=== PATIENT | female | born 1965 | race Caucasian/White ===

== ENCOUNTER → 2016-02-17 | Outpatient (CLI) | payer BC ==
--- NOTE | 2016-02-17 18:55 | Diagnostic Imaging Report ---
PROCEDURE: US Thyroid. TECHNIQUE: Multiple real-time grayscale images were obtained of the thyroid in various projections. INDICATION: Family history of thyroid cancer. FINDINGS: The right thyroid lobe is 6.2 x 2.4 x 2 cm. The right lobe is 5.7 x 2.2 x 2 cm. There is heterogeneous gland seen with slight increased vascularity but no dominant lesion or mass identified. IMPRESSION: Heterogenous enlarged thyroid may relate to thyroiditis or goiter without a discrete thyroid nodule. Dictated by: Dictated on workstation # [id number]
== END ==
LOC: RAD 10:38
PROVIDERS: ATTEND Nurse Practitioner Family
DX: Z80.8 Family history of malignant neoplasm of other organs or systems (principal); E04.9 Nontoxic goiter, unspecified
CPT/HCPCS: 76536

== ENCOUNTER 2020-02-01 13:54 | Outpatient (CLI) | payer OTHER | END 2020-02-01 14:25 | disposition home or self-care (01) | LOC: SLEEP 13:54 | PROVIDERS: ATTEND Surgery | DX: G47.33 Obstructive sleep apnea (adult) (pediatric) (principal) ==

== ENCOUNTER 2020-11-27 14:55 | Emergency (ER) | payer OTHER ==
[~2020-11-27] VITALS: Ht 175 cm; Wt 87.9 kg
[2020-11-27] MEDS ORDERED: LEVO175T2 (15:13)
--- NOTE | 2020-11-27 15:33 | ED Upper Extremity ---
General Chief Complaint: Laceration Stated Complaint: LEFT INDEX FINGER LAC Nursing Triage Note: PT PRESENTS TO ED VIA POV FROM HOME WITH COMPLAINTS OF L POINTER FINGER LAC AFTER GETTING IT CAUGHT IN HER DOG'S OUTDOOR WIRE LEASH. Source: patient Exam Limitations: no limitations (IQRA MAY) History of Present Illness Date Seen by Provider: Nov 27, 2020 Time Seen by Provider: 15:09 Initial Comments This is Codey a 55 yo female that presented to the ED via private vehicle with the chief complaint of distal left index finger laceration. She described getting it caught in a runner cable for her dog as it took off after a squirrel. The 3rd digit is also swollen and mildly tender. This incident occurred 45 minutes ago and Pt stated that she felt light headed and sweaty so had someone give her a ride. She is currently feeling much better. She denies taking and anticoagulant therapy or bleeding disorders. Onset: just prior to arrival Severity: moderate Pain/Injury Location: left 2nd finger Method of Injury: incised Modifying Factors: Improves With Immobilization (IQRA MAY) Allergies and Home Medications Allergies Coded Allergies: No Known Drug Allergies (Unverified , 11/27/20) Patient Home Medication List Levothyroxine Sodium (Synthroid) 175 Mcg Tablet, (Reported) Entered as Reported by: MYKE GUNN on 11/27/20 1513 Last Action: New Order Review of Systems Constitutional: no symptoms reported EENTM: no symptoms reported Respiratory: no symptoms reported Cardiovascular: no symptoms reported Gastrointestinal: no symptoms reported Genitourinary: no symptoms reported Musculoskeletal: see HPI, joint pain, joint swelling Skin: see HPI, change in color, other (laceration) Psychiatric/Neurological: No Symptoms Reported (IQRA MAY) Past Adxrpft-Uniroc-Twmjbw Hx Patient Social History Tobacco Use?: No Substance use?: No Alcohol Use?: No Pt feels they are or have been: No (IQRA MAY) Past Medical History Surgery/Hospitalization HX: PMH: HYPOTHYROIDISM SX: GASTRIC SLEVE (IQRA MAY) Physical Exam Vital Signs Vital Signs - First Documented 11/27/20 15:05 Temp 36.0 Pulse 98 Resp 18 B/P (MAP) 117/71 (86) Pulse Ox 98 (DIANE ALTAMIRANO MD) Vital Signs Capillary Refill : Less Than 3 Seconds (IQRA MAY MED STUDENT) Height, Weight, BMI Height: '" Weight: lbs. oz. kg; 28.00 BMI Method: General Appearance: WD/WN, no apparent distress HEENT: PERRL/EOMI Neck: non-tender, supple, normal inspection Cardiovascular: normal peripheral pulses, regular rate, rhythm, no edema, no gallop, no murmur Respiratory: chest non-tender, lungs clear, normal breath sounds, no respiratory distress, no accessory muscle use Gastrointestinal: normal bowel sounds, non tender, soft Shoulder: normal inspection, non-tender, no evidence of injury, normal ROM Elbow/Forearm: normal inspection, non-tender, no evidence of injury, normal ROM Wrist: Yes normal inspection, Yes non-tender, Yes no evidence of injury, Yes normal ROM Hand: Left, laceration, soft tissue tenderness, swelling Neurologic/Tendon: normal sensation, normal motor functions Neurologic/Psychiatric: no motor/sensory deficits, alert, normal mood/affect, oriented x 3 Skin: normal color, warm/dry (IQRA MAY MED STUDENT) Progress/Results/Core Measures Results/Orders My Orders Orders - DIANE ALTAMIRANO MD Dipht,Pertuss(Acell),Tet Adult (Boostrix (11/27/20 15:45) Finger(S) (11/27/20 15:49) (DIANE ALTAMIRANO MD) Medications Given in ED Current Medications Medications Dose Ordered Sig/Drew Route Start Time Stop Time Status Last Admin Dose Admin Diphtheria/ Tetanus/Acell Pertussis 0.5 ml ONCE ONCE IM 11/27/20 15:45 11/27/20 15:46 DC 11/27/20 16:34 0.5 ML (DIANE ALTAMIRANO MD) Vital Signs/I&O 11/27/20 15:05 Temp 36.0 Pulse 98 Resp 18 B/P (MAP) 117/71 (86) Pulse Ox 98 (DIANE ALTAMIRANO MD) Blood Pressure Mean: 86 Diagnostic Imaging Diagonstic Imaging: Xray Plain Films/CT/US/NM/MRI: hand Comments Finger x-rays viewed by me and report reviewed. See report below: NAME: CODEY LE [facility] REC#: [id number] PT STATUS: REG ER : 1965 PHYSICIAN: DIANE ALTAMIRANO MD ADMIT DATE: 11/27/20/ER Signed Date of Exam:11/27/20 FINGER(S) EXAMINATION: Left second finger radiographs, 2 views. Left hand, single view. COMPARISON: None. HISTORY: 55-year-old female, finger laceration. FINDINGS: There is no identified acute fracture. There is no cortical or aggressive bone destruction. There is no periosteal reaction. The joint spaces are well preserved. There is no radiopaque foreign body. IMPRESSION: 1. No acute bony abnormality of the left second finger. 2. No radiopaque foreign body. Dictated by: Dictated on workstation # [id number] Dict: 11/27/20 1603 Trans: 11/27/20 1641 PJE [id number] Interpreted by: JOCELYN MENESES MD Electronically signed by: JOCELYN MENESES MD 11/27/20 1641 (DIANE ALTAMIRANO MD) Departure Impression Primary Impression: Finger laceration Qualified Codes: S61.211A - Laceration without foreign body of left index finger without damage to nail, initial encounter Disposition: 01 HOME, SELF-CARE Condition: Improved Departure-Patient Inst. Decision time for Depature: 17:10 (DIANE ALTAMIRANO MD) Referrals: TERENCE PILLAI MD (PCP/Family) Primary Care Physician Patient Instructions: Laceration Repair With Stitches (DC) Add. Discharge Instructions: Keep your wound clean and dry except for normal hand washing and showering. Wait until tomorrow to shower or wash your hands. Do not submerge until sutures are removed. Keep covered when active, sleeping, or in dirty environments. Keep open to air when awake and at rest. Monitor for signs of infection such as increasing redness, increasing swelling, puslike drainage, or fever. Return to care promptly if you notice these symptoms. You may return to the ER at any time for a wound check if you would like your wound evaluated. There will be no charge for this service. For pain you may take Tylenol (acetaminophen) up to 1000 mg every 6 hours as needed. For pain not controlled by Tylenol use ibuprofen up to 600 mg every 6 hours as needed. Because of your gastric sleeve, you should take ibuprofen with food or milk and consider using an antacid medication such as Pepcid or omeprazole on days you take ibuprofen. Return in 10 days to have your sutures removed. If you have oozing of the wound, you may apply light pressure by squeezing with the opposite hand and elevate the wound. Using may cause the dressing to stick. You may use the nonstick dressing supplied or use Vaseline or antibiotic ointme nt. If you have difficulty removing dressing, moisten a little with tap water. You may use the splint provided to protect your finger if needed. Call with questions or concerns. Return to the ER if you have any other worsening of condition that needs reev aluation. All discharge instructions reviewed with patient and/or family. Voiced understanding. IQRA MAY MED STUDENT Nov 27, 2020 15:33 DIANE ALTAMIRANO MD Nov 27, 2020 17:14
[2020-11-27] MEDS ORDERED: TETANUS,DIPTH,PERTUSS P/F (BOOSTRIX) 0.5 ML VIAL IM ONE (15:45)
--- NOTE | 2020-11-27 16:08 | Diagnostic Imaging Report ---
EXAMINATION: Left second finger radiographs, 2 views. Left hand, single view. COMPARISON: None. HISTORY: 55-year-old female, finger laceration. FINDINGS: There is no identified acute fracture. There is no cortical or aggressive bone destruction. There is no periosteal reaction. The joint spaces are well preserved. There is no radiopaque foreign body. IMPRESSION: 1. No acute bony abnormality of the left second finger. 2. No radiopaque foreign body. Dictated by: Dictated on workstation # [id number]
[2020-11-27 17:26] VITALS: BP 121/70
== END 2020-11-27 17:26 | disposition home or self-care (01) ==
LOC: EDUNIT# 14:55 → ER 14:58
DX: S61.211A Laceration without foreign body of left index finger without damage to nail, initial encounter (principal); E03.9 Hypothyroidism, unspecified; Z79.890 Hormone replacement therapy; Z23 Encounter for immunization; Z79.899 Other long term (current) drug therapy; W23.1XXA Caught, crushed, jammed, or pinched between stationary objects, initial encounter
CPT/HCPCS: 12002; 64450; 73140; 90715

== ENCOUNTER 2020-12-05 17:14 | Emergency (ER) | payer OTHER ==
[~2020-12-05] VITALS: Ht 175 cm; Wt 87.9 kg
[~2020-12-05 17:14] MED LIST: LEVO175T2
[2020-12-05] MEDS ORDERED: DOXY100T2 PO (17:58)
--- NOTE | 2020-12-05 17:58 | ED Suture Removal/Wound Check ---
Suture/Wound Re-check Suture Removal/Wound Recheck : Progress Wound recheck of laceration of index finger General Appearance: WD/WN, no apparent distress Neuro/Tendon: normal sensation, normal motor functions, normal tendon functions, responds to pain, no evidence tendon injury Skin Exam: other (Mild erythema swelling and pulling of the stitches. No pointing or fluctuance to be drained.) Physical Exam Vital Signs Vital Signs - First Documented 12/05/20 17:33 Temp 36.3 Pulse 71 Resp 18 B/P (MAP) 123/80 Pulse Ox 96 Capillary Refill : General Appearance: WD/WN, no apparent distress HEENT: PERRL/EOMI, normal ENT inspection Cardiovascular: normal peripheral pulses, regular rate, rhythm Respiratory: no respiratory distress, no accessory muscle use Neurologic/Psychiatric: alert, normal mood/affect Skin: other (Swelling redness erythema on the index finger around the sutures. No fluctuance or pointing to be drained) Departure Impression Primary Impression: Finger laceration Qualified Codes: S61.211A - Laceration without foreign body of left index finger without damage to nail, initial encounter Additional Impression: Visit for wound check Disposition: 01 HOME, SELF-CARE Condition: Stable Departure-Patient Inst. Decision time for Depature: 17:57 Referrals: TERENCE PILLAI MD (PCP/Family) Primary Care Physician Patient Instructions: Laceration Repair With Stitches (DC) Add. Discharge Instructions: Plan to return on Saturday to have sutures removed. Keep the hand clean with regular soap and water, and elevate above the level of your heart. Doxycycline 1 capsule twice a day for the next week. Expect to see some improvement in a day or 2 on antibiotics. All discharge instructions reviewed with patient and/or family. Voiced understanding. Scripts Doxycycline Hyclate (Doxycycline Hyclate) 100 Mg Tablet 100 MG PO BID for 7 Days, #14 TAB 0 Refills Prov: JULIANNE CHANG 12/05/20 JULIANNE CHANG Dec 05, 2020 17:58
[2020-12-05 18:12] VITALS: BP 123/80
== END 2020-12-05 18:12 | disposition home or self-care (01) ==
LOC: EDUNIT# 17:14 → ER 17:16
DX: Z48.00 Encounter for change or removal of nonsurgical wound dressing (principal)

== ENCOUNTER 2020-12-07 17:21 | Emergency (ER) | payer OTHER ==
[~2020-12-07] VITALS: Ht 175 cm; Wt 87.0 kg
[~2020-12-07 17:21] MED LIST changes: +DOXY100T2 PO
[2020-12-07 17:56] VITALS: BP 125/75
== END 2020-12-07 17:58 | disposition home or self-care (01) ==
LOC: EDUNIT# 17:21 → ER 17:22
DX: Z48.02 Encounter for removal of sutures (principal)